=== PATIENT | female | born 1990 | race Caucasian/White ===

== ENCOUNTER 2016-08-01 09:07 | Emergency (ER) | payer BC, MEDICAID ==
[2016-08-01] MEDS ORDERED: NS 0.9% 1000 ML* 1,000 ML IV ONE (09:25)
--- NOTE | 2016-08-01 09:30 | ED ---
Abdominal Pain/Female - History of Current Complaint Chief Complaint: EDAbdPain Stated Complaint: LOWER ABD PAIN Hx Obtained From: Patient Hx Last Menstrual Period: Implanon ?: No Onset/Duration: Sudden Onset - awoke this am with lower abd pain. felt urge to have BM, did go to [facility] and had brown diarrhea, no blood. no vaginal d/c no urinary prob pt did feel nausous for few min, but no vomiting. has had [facility] co-workers out with "GI bug" Timing: Intermittent Episode Lasting - 20min Severity Initially: Severe Severity Currently: Moderate Pain Intensity: 7 Location: Other - lower R and mid abd Radiates: No Character: Cramping Aggravating Factor(s): Nothing Alleviating Factor(s): Nothing - BM helped a bit Associated Signs and Symptoms: Positive: Nausea, Diarrhea. Negative: Fever, Cough, Dizzy, Back Pain, Blood in Stool, Vomiting Allergies/Adverse Reactions: Allergies Allergy/AdvReac Type Severity Reaction Status Date / Time blue cheese Allergy Hives Uncoded 11/20/13 11:34 PMH/Surg Hx/FS Hx/Imm Hx Previously Healthy: Yes Endocrine/Hematology History: Denies: Hx Diabetes, Hx Thyroid Disease Cardiovascular History: Denies: Hx Hypertension Respiratory History: Denies: Hx Asthma, Hx Chronic Obstructive Pulmonary Disease (COPD) GI History: Denies: Hx Gall Bladder Disease, Hx Ulcer, Other GI Disorders History: Denies: Hx Kidney Infection Neurological History: Denies: Hx Headaches Psychiatric History: Denies: Hx Anxiety, Hx Depression Infectious Disease History: No Infectious Disease History: Denies: Hx Clostridium Difficile, Hx Hepatitis, Hx Human Immunodeficiency Virus (HIV), Hx of Known/Suspected MRSA, Hx Shingles, Hx Tuberculosis, Traveled Outside the [place] in Last 30 Days - Family History Known Family History: Positive: None, Other - mother: endometriosis Family History: no cardio, pulmonary, vascular issues in family lineage - Social History Occupation: Unemployed Lives: With Family Alcohol Use: None Substance Use Type: Reports: None Smoking Status (MU): Never Smoked Tobacco Have You Smoked in the Last Year: No Review of Systems Constitutional: Negative ENT: Negative Cardiovascular: Negative Respiratory: Negative Positive: Abdominal Pain, Diarrhea, Nausea Genitourinary: Negative Musculoskeletal: Negative Skin: Negative Negative: Rash Neurological: Negative Negative: Headache, Weakness Psychological: Normal All Other Systems Reviewed And Are Negative: Yes Physical Exam Triage Information Reviewed: Yes Vital Signs On Initial Exam: Initial Vitals Temp Pulse Resp BP Pulse Ox 98.8 F 65 16 105/77 98 08/01/16 09:13 08/01/16 09:13 08/01/16 09:13 08/01/16 09:13 08/01/16 09:13 Vital Signs Reviewed: Yes Appearance: Positive: Well-Appearing, No Pain Distress, Well-Nourished Skin: Positive: Warm, Skin Color Reflects Adequate Perfusion, Dry ENT: Positive: Normal ENT inspection, Pharynx normal Neck: Positive: Supple, Nontender, No Lymphadenopathy Respiratory/Lung Sounds: Positive: Clear to Auscultation Cardiovascular: Positive: Normal, RRR, Pulses are Symmetrical in both Upper and Lower Extremities Abdomen Description: Positive: No Organomegaly, Soft, Other: - pain with palp mid lower abd and RLQ. mild rebound tenderness, worse with palp. Negative: CVA Tenderness (R), CVA Tenderness (L), Distended, Guarding Bowel Sounds: Positive: Present Musculoskeletal: Positive: Normal, Strength/ROM Intact Neurological: Positive: Normal, Sensory/Motor Intact, Alert, Oriented to Person Place, Time Psychiatric: Positive: Normal Diagnostics - Vital Signs Vital Signs Temp Pulse Resp BP Pulse Ox 08/01/16 09:13 98.8 F 65 16 105/77 98 - Laboratory Result Diagrams: 08/01/16 09:38 08/01/16 09:38 Lab Statement: Any lab studies that have been ordered have been reviewed, and results considered in the medical decision making process. Re-Evaluation - Re-Evaluation First Eval Change: Improved - pain now only in lower mid abd. no rebound tenedrness. pt ambulattory to void w/o prob Abdominal Pain Fem Course/Dx - Diagnoses Differential Diagnosis: Positive: Appendicitis, Ovarian Cyst, Renal Colic, Other - gastroenteritis Provider Diagnoses: Abdominal pain Discharge - Discharge Plan Condition: Improved Disposition: HOME Patient Education Materials: Abdominal Pain (ED), Clear Liquid Diet (ED) Referrals: No Primary Care Phys,NOPCP [Primary Care Provider] - Eliu Boo MD [Medical Doctor] - 1 Day Additional Instructions: stay on clear liquid diet for 24hours then advance to bland foods stay well hydrated with fluids (Gatorade) Return to ER if you develop a fever, new symptoms or your pain increases at any time
[2016-08-01 09:43] LABS: Hematocrit 41 % (35-47); Hemoglobin 13.7 g/dl (12.0-16.0); Mean Corpuscular HGB Conc 34 g/dl (31-36); Mean Corpuscular Hemoglobin 29 pg (27-31); Mean Corpuscular Volume 87 fL (80-97); Mean Platelet Volume 9 um3 (7.4-10.4); Red Blood Count 4.68 10^6/ul (4.0-5.4); Red Cell Distribution Width 13 % (10.5-15); White Blood Count 10.4 10^3/ul (3.5-10.8)
[2016-08-01 09:58] LABS: BUN/Creatinine Ratio 16.4 (8-20); C Reactive Protein 1.12 mg/L (< 5.00); EGFR African American 137.9 (>60); EGFR Non-African American 107.2 (>60); Globulin 2.9 g/dL (2-4); Potassium 3.3 mmol/L (3.5-5.0); Total Bilirubin 0.5 mg/dL (0.2-1.0); Total Protein 6.9 g/dL (6.4-8.9)
[2016-08-01 10:31] LABS: Urine Bacteria Absent (Absent); Urine Bilirubin Negative (Negative); Urine Glucose Negative (Negative); Urine Nitrite Negative (Negative)
[2016-08-01 11:49] VITALS: BP 107/64
== END 2016-08-01 11:50 | disposition home or self-care (01) ==
LOC: ED 09:07
DX: R10.30 Lower abdominal pain, unspecified (principal); R11.0 Nausea; R19.7 Diarrhea, unspecified
CPT/HCPCS: 36415; 80053; 81003; 81015; 83605; 83690; 85025; 86140; 96360; 99283

== ENCOUNTER 2016-08-02 10:53 | Emergency (ER) | payer BC, MEDICAID ==
[2016-08-02 12:05] VITALS: BP 132/86
--- NOTE | 2016-08-02 14:56 | UC ---
Maik Perez Matthew, scribed for Aurea Anderson DO on 08/02/16 at 1332 . Abdominal Pain Female HPI - HPI Summary HPI Summary: A 26 y/o female presents to [facility] with constant lower abdominal pain that is worse in the middle of her lower abdomen. The pain is currently rated 4/10 and described as dull. Yesterday morning, the patient had sudden lower abdominal pain that was rated 9/10 in severity; however she did not awake with this pain. At that time, the pain was described as sharp, and prompted her to go to [facility]. She had one bout of loss stole, diaphoresis, and nausea. She denies blood in her stool at that time. The pain has decreased in intensity from a 7/10 to a 5-6 /10. Today, the patient continues to have the lower abdominal pain. She denies nausea, vomiting, diarrhea, decreased appetite, fever, chills, SOB, dizziness, diffuse body aches, headache, rashes, and urinary symptoms. The pain is worse with bumps in the road, jumping, BM, urination, movement, touch, coughing, and laying flat. normal bm today. The pain is partially alleviated in the position and sitting. - History of Current Complaint Chief Complaint: UCAbdominalPain Stated Complaint: ABDOMINAL PAIN Time Seen by Provider: 08/02/16 13:05 Hx Obtained From: Patient Hx Last Menstrual Period: nexplanon ?: No Onset/Duration: Sudden Onset, Lasting Days, Still Present Severity Initially: Moderate Severity Currently: Mild Pain Intensity: 4 Pain Scale Used: 0-10 Numeric Location: Diffuse - lower abdominal worse umblical Radiates: No Character: Dull Aggravating Factor(s): Movement, Other: - bumps in the road, jumping, BM, urination, movement, touch, coughing, and laying flat Alleviating Factor(s): Other: - position Associated Signs and Symptoms: Negative: Diaphoresis, Fever, Chest Pain, Blood in Stool, Urinary Symptoms, Decreased Appetite, Nausea, Vomiting, Diarrhea Allergies/Adverse Reactions: Allergies Allergy/AdvReac Type Severity Reaction Status Date / Time blue cheese Allergy Hives Uncoded 11/20/13 11:34 Home Medications: Home Medications Acetaminophen [Eq Acetaminophen] 1,000 mg PO 01/09/17 [History] PMH/Surg Hx/FS Hx/Imm Hx Previously Healthy: Yes Endocrine History Of: Denies: Diabetes, Thyroid Disease Cardiovascular History Of: Denies: Cardiac Disorders, Hypertension Respiratory History Of: Denies: COPD, Asthma GI/ History Of: Denies: Ulcer, Gall Bladder Disease Psychological History Of: Denies: Anxiety, Depression - Surgical History Surgical History: None - Family History Known Family History: Positive: None, Other - mother: endometriosis Family History: no cardio, pulmonary, vascular issues in family lineage - Social History Lives: With Family Alcohol Use: None Substance Use Type: None Smoking Status (MU): Never Smoked Tobacco Have You Smoked in the Last Year: No - Immunization History Most Recent Influenza Vaccination: 04/30/16 Most Recent Tetanus Shot: 03/27/14 Most Recent Pneumonia Vaccination: n/a Review of Systems Constitutional: Negative Skin: Negative Eyes: Negative ENT: Negative Respiratory: Negative Cardiovascular: Negative Gastrointestinal: Abdominal Pain - Diffuse lower abdominal pain worse umblical Genitourinary: Negative Motor: Negative Neurovascular: Negative Musculoskeletal: Negative Neurological: Negative Psychological: Negative All Other Systems Reviewed And Are Negative: Yes Physical Exam Triage Information Reviewed: Yes Appearance: Well-Appearing, No Pain Distress, Well-Nourished Vital Signs: Initial Vital Signs Temp 98.3 F 08/02/16 12:00 Pulse 60 08/02/16 12:00 Resp 18 08/02/16 12:00 BP 132/86 08/02/16 12:00 Pulse Ox 99 08/02/16 12:00 Vital Signs Reviewed: Yes Eyes: Positive: Conjunctiva Clear. Negative: Discharge ENT: Positive: Hearing grossly normal. Negative: Muffled/hoarse voice Neck: Positive: Supple, Nontender Respiratory: Positive: Lungs clear, Normal breath sounds, No respiratory distress, No accessory muscle use Cardiovascular: Positive: RRR, No Murmur Abdomen Description: Positive: Soft, McBurney's Point Tenderness, Other: - RLQ tenderness; mild rebound; ; pain with landing from a jump; negative psoas sign; negative obturator sign. Negative: CVA Tenderness (R), CVA Tenderness (L), Distended, Guarding Bowel Sounds: Positive: Present Musculoskeletal Exam: Normal Neurological: Positive: Alert, Muscle Tone Normal Psychological Exam: Normal Psychological: Positive: Age Appropriate Behavior Skin Exam: Normal Skin: Positive: Other - warm, dry, normal color Abd Pain Female Course/Dx - Differential Dx/Diagnosis Differential Diagnosis: Appendicitis, Ectopic , Irritable Bowel Syndrome, Ovarian Cyst, , Urinary Tract Infection Provider Diagnoses: abd pain unknown [place] Discharge - Discharge Plan Condition: Stable Disposition: TRANS HIGHER LVL OF CARE FAC Discharge Disposition Comment: The patient requries further management at the ED. Referrals: No Primary Care Phys,NOPCP [Primary Care Provider] - The documentation as recorded by the Maik schwab Matthew accurately reflects the service I personally performed and the decisions made by , Aurea Anderson DO.
== END 2016-08-02 14:13 | disposition short-term general hospital (02) ==
LOC: UCEAST 10:53
DX: R10.33 Periumbilical pain (principal); Z32.02 Encounter for pregnancy test, result negative
CPT/HCPCS: 81002; 81025; 99212; G0463

== ENCOUNTER 2016-08-02 14:26 | Emergency (ER) | payer BC, MEDICAID ==
--- NOTE | 2016-08-02 15:18 | ED ---
Abdominal Pain/Female - HPI Summary HPI Summary: 26 female presents today complaining of abdominal pain that began yesterday . She was seen here at the ED yesterday after this episode and discharged later that night with the diagnosis of a "GI bug". She describes the pain yesterday as sharp shooting intense pain that made her curl up into the position. She was very nauseous and sweaty during this episode. She also experienced one episode of diarrhea. Denies blood in her stool. She has never experienced this pain before. The pain dissipated throughout her stay in the ED and has since been a dull achey pain in her RLQ/umbilical area of her abdomen. This morning upon waking up she went to urgent care to be evaluated since the pain was still there. She was then sent back to the ED. She now states the pain is constant but much less in severity when compared to yesterday. The pain gets worse when moving, coughing, laughing, jumping or hitting bumps while in the car. Resting helps with the pain. She tried taking a Tylenol before bed last night but went to sleep after and wasn't able to notice any relief. She denies any constipation, diarrhea, nausea, vomiting, fever/chills, difficulty breathing , difficulty urinating, burning upon urination, chest pain, hematuria and radiation of pain. - History of Current Complaint Hx Obtained From: Patient Hx Last Menstrual Period: nexplanon, doesn't get her periods ?: No Onset/Duration: Sudden Onset - sudden onset yesterday morning 08/01/16. Pain is much less than yesterday but still constantly there., Still Present Timing: Constant Severity Initially: Severe Severity Currently: Mild Pain Intensity: 3 Pain Scale Used: 0-10 Numeric Location: Discrete At: RLQ - radiation to LLQ, Umbilical Radiates to: LLQ Character: Dull Aggravating Factor(s): Movement - jumping, coughing, laughing, car ride bumps Alleviating Factor(s): Position Associated Signs and Symptoms: Positive: Diaphoresis - yesterday 08/01/16, Nausea - yesterday, not today, Diarrhea - one episode yesterday 08/01/16. Negative: Fever, Cough, Chest Pain, Constipation, Blood in Stool, Urinary Symptoms, Decreased Appetite, Vaginal Discharge, Vomiting - Risk Factors Ectopic Risk Factor: Negative Ovarian Torsion Risk Factor: Negative <Erica Obrien - Last Filed: 08/02/16 19:26> <Jose Tate - Last Filed: 08/02/16 20:45> - History of Current Complaint Chief Complaint: EDAbdPain Stated Complaint: LOWER ABD PAIN Allergies/Adverse Reactions: Allergies Allergy/AdvReac Type Severity Reaction Status Date / Time blue cheese Allergy Hives Uncoded 11/20/13 11:34 PMH/Surg Hx/FS Hx/Imm Hx Previously Healthy: Yes Endocrine/Hematology History: Denies: Hx Diabetes, Hx Thyroid Disease Cardiovascular History: Denies: Hx Hypertension Respiratory History: Denies: Hx Asthma, Hx Chronic Obstructive Pulmonary Disease (COPD) GI History: Denies: Hx Gall Bladder Disease, Hx Ulcer, Other GI Disorders History: Denies: Hx Kidney Infection Neurological History: Denies: Hx Headaches Psychiatric History: Denies: Hx Anxiety, Hx Depression Infectious Disease History: No Infectious Disease History: Denies: Hx Clostridium Difficile, Hx Hepatitis, Hx Human Immunodeficiency Virus (HIV), Hx of Known/Suspected MRSA, Hx Shingles, Hx Tuberculosis, Traveled Outside the [place] in Last 30 Days - Family History Known Family History: Positive: Other - mother: endometriosis Family History: no cardio, pulmonary, vascular issues in family lineage. Mother does have endometriosis. - Social History Alcohol Use: None Substance Use Type: Reports: None Smoking Status (MU): Never Smoked Tobacco Have You Smoked in the Last Year: No <Erica Obrien - Last Filed: 08/02/16 19:26> Review of Systems Constitutional: Negative Eyes: Negative ENT: Negative Cardiovascular: Negative Respiratory: Negative Positive: Abdominal Pain - RLQ, Umbilical area, radiating to LLQ Genitourinary: Negative Musculoskeletal: Negative Skin: Negative Neurological: Negative Psychological: Normal All Other Systems Reviewed And Are Negative: Yes <Erica Obrien - Last Filed: 08/02/16 19:26> Physical Exam Triage Information Reviewed: Yes Vital Signs On Initial Exam: Initial Vitals Temp Pulse Resp BP Pulse Ox 98.8 F 67 16 121/72 100 08/02/16 14:42 08/02/16 14:42 08/02/16 14:42 08/02/16 14:42 08/02/16 14:42 Vital Signs Reviewed: Yes Appearance: Positive: Well-Appearing, No Pain Distress, Well-Nourished Skin: Positive: Warm, Skin Color Reflects Adequate Perfusion Eyes: Positive: Normal ENT: Positive: Normal ENT inspection, Hearing grossly normal, Pharynx normal, Nasal congestion, TMs normal Neck: Positive: Supple, Nontender, No Lymphadenopathy Respiratory/Lung Sounds: Positive: Clear to Auscultation, Breath Sounds Present Cardiovascular: Positive: Normal, RRR, Pulses are Symmetrical in both Upper and Lower Extremities Abdomen Description: Positive: No Organomegaly, Soft, Guarding, McBurney's Point Tenderness - tenderness to RLQ, umbilical area and right pelvic area. Some radiation to LLQ.. Negative: CVA Tenderness (R), CVA Tenderness (L), Distended, Peritoneal Signs, Pulsatile Mass, Splenomegaly Bowel Sounds: Positive: Present Pelvic Exam: Positive: external exam normal Musculoskeletal: Positive: Normal Neurological: Positive: Normal, Sensory/Motor Intact, Alert, Oriented to Person Place, Time Psychiatric: Positive: Normal <Erica Obrien - Last Filed: 08/02/16 19:26> Vital Signs On Initial Exam: Initial Vitals Temp Pulse Resp BP Pulse Ox 98.8 F 67 16 121/72 100 08/02/16 14:42 08/02/16 14:42 08/02/16 14:42 08/02/16 14:42 08/02/16 14:42 <Jose Tate - Last Filed: 08/02/16 20:45> Diagnostics - Vital Signs Vital Signs Temp Pulse Resp BP Pulse Ox 08/02/16 14:42 98.8 F 67 16 121/72 100 - Laboratory Result Diagrams: 08/02/16 16:05 08/02/16 16:05 Lab Statement: Any lab studies that have been ordered have been reviewed, and results considered in the medical decision making process. - CT CT abdomen, pelvis CT Interpretation: No Acute Changes - NORMAL APPENDIX. NO EVIDENCE OF BOWEL OBSTRUCTION. MODERATE AMOUNT OF FREE FLUID IS NOTED IN THE CUL-DE-SAC. CT Interpretation Completed By: Radiologist - Ultrasound No standard instances Ultrasound Interpretation: Positive (See Comments) - Likely involuting cyst in the right ovary measuring 2.9 cm in greatest dimension. Free fluid in the cul- de-sac. No evidence of torsion with Doppler flow in both ovaries. Ultrasound Interpretation Completed By: Radiologist <Erica Obrien - Last Filed: 08/02/16 19:26> - Vital Signs Vital Signs Temp Pulse Resp BP Pulse Ox 08/02/16 19:08 86 16 08/02/16 18:11 86 99 08/02/16 17:00 82 96 08/02/16 16:30 79 93 08/02/16 16:24 78 99 08/02/16 16:23 112/68 08/02/16 14:42 98.8 F 67 16 121/72 100 - Laboratory Lab Results: Lab Results 08/02/16 08/02/16 08/02/16 Range/Units 16:05 16:05 16:05 WBC 12.6 H (3.5-10.8) 10^3/ul RBC 4.22 (4.0-5.4) 10^6/ul Hgb 12.2 (12.0-16.0) g/dl Hct 37 (35-47) % MCV 88 (80-97) fL MCH 29 (27-31) pg MCHC 33 (31-36) g/dl RDW 13 (10.5-15) % Plt Count 182 (150-450) 10^3/ul MPV 10 (7.4-10.4) um3 Neut % (Auto) 82.0 (38-83) % Lymph % (Auto) 12.8 L (25-47) % [place] % (Auto) 4.3 (1-9) % Eos % (Auto) 0.6 (0-6) % Baso % (Auto) 0.3 (0-2) % Absolute Neuts (auto) 10.3 H (1.5-7.7) 10^3/ul Absolute Lymphs (auto) 1.6 (1.0-4.8) 10^3/ul Absolute Monos (auto) 0.5 (0-0.8) 10^3/ul Absolute Eos (auto) 0.1 (0-0.6) 10^3/ul Absolute Basos (auto) 0 (0-0.2) 10^3/ul Absolute Nucleated RBC 0 10^3/ul Nucleated RBC % 0 Sodium 137 (133-145) mmol/L Potassium 3.4 L (3.5-5.0) mmol/L Chloride 105 (101-111) mmol/L Carbon Dioxide 24 (22-32) mmol/L Anion Gap 8 (2-11) mmol/L BUN 6 (6-24) mg/dL Creatinine 0.64 (0.51-0.95) mg/dL Est GFR ( Amer) 145.4 (>60) Est GFR (Non-Af Amer) 113.1 (>60) BUN/Creatinine Ratio 9.4 (8-20) Glucose 88 (70-100) mg/dL Lactic Acid (0.5-2.0) mmol/L Calcium 9.2 (8.6-10.3) mg/dL Total Bilirubin 0.70 (0.2-1.0) mg/dL AST 15 (13-39) U/L ALT 10 (7-52) U/L Alkaline Phosphatase 64 (34-104) U/L C-Reactive Protein 9.41 H (< 5.00) mg/L Total Protein 6.9 (6.4-8.9) g/dL Albumin 4.2 (3.2-5.2) g/dL Globulin 2.7 (2-4) g/dL Albumin/Globulin Ratio 1.6 (1-3) Amylase 56 (29-103) U/L Lipase 14 (11.0-82.0) U/L Beta HCG, Quant < 0.60 mIU/mL Urine Color Yellow Urine Appearance Cloudy Urine pH 5.0 (5-9) Ur Specific [place] 1.014 (1.010-1.030) Urine Protein Negative (Negative) Urine Ketones Negative (Negative) Urine Blood Negative (Negative) Urine Nitrate Negative (Negative) Urine Bilirubin Negative (Negative) Urine Urobilinogen Negative (Negative) Ur Leukocyte Esterase 1+ H (Negative) Urine WBC (Auto) 1+(6-10/hpf) H (Absent) Urine RBC (Auto) Absent (Absent) Ur Squamous Epith Cells Present H (Absent) Urine Bacteria Absent (Absent) Urine Glucose Negative (Negative) 08/02/16 Range/Units 16:05 WBC (3.5-10.8) 10^3/ul RBC (4.0-5.4) 10^6/ul Hgb (12.0-16.0) g/dl Hct (35-47) % MCV (80-97) fL MCH (27-31) pg MCHC (31-36) g/dl RDW (10.5-15) % Plt Count (150-450) 10^3/ul MPV (7.4-10.4) um3 Neut % (Auto) (38-83) % Lymph % (Auto) (25-47) % [place] % (Auto) (1-9) % Eos % (Auto) (0-6) % Baso % (Auto) (0-2) % Absolute Neuts (auto) (1.5-7.7) 10^3/ul Absolute Lymphs (auto) (1.0-4.8) 10^3/ul Absolute Monos (auto) (0-0.8) 10^3/ul Absolute Eos (auto) (0-0.6) 10^3/ul Absolute Basos (auto) (0-0.2) 10^3/ul Absolute Nucleated RBC 10^3/ul Nucleated RBC % Sodium (133-145) mmol/L Potassium (3.5-5.0) mmol/L Chloride (101-111) mmol/L Carbon Dioxide (22-32) mmol/L Anion Gap (2-11) mmol/L BUN (6-24) mg/dL Creatinine (0.51-0.95) mg/dL Est GFR ( Amer) (>60) Est GFR (Non-Af Amer) (>60) BUN/Creatinine Ratio (8-20) Glucose (70-100) mg/dL Lactic Acid 0.8 (0.5-2.0) mmol/L Calcium (8.6-10.3) mg/dL Total Bilirubin (0.2-1.0) mg/dL AST (13-39) U/L ALT (7-52) U/L Alkaline Phosphatase (34-104) U/L C-Reactive Protein (< 5.00) mg/L Total Protein (6.4-8.9) g/dL Albumin (3.2-5.2) g/dL Globulin (2-4) g/dL Albumin/Globulin Ratio (1-3) Amylase (29-103) U/L Lipase (11.0-82.0) U/L Beta HCG, Quant mIU/mL Urine Color Urine Appearance Urine pH (5-9) Ur Specific [place] (1.010-1.030) Urine Protein (Negative) Urine Ketones (Negative) Urine Blood (Negative) Urine Nitrate (Negative) Urine Bilirubin (Negative) Urine Urobilinogen (Negative) Ur Leukocyte Esterase (Negative) Urine WBC (Auto) (Absent) Urine RBC (Auto) (Absent) Ur Squamous Epith Cells (Absent) Urine Bacteria (Absent) Urine Glucose (Negative) Result Diagrams: 08/02/16 16:05 08/02/16 16:05 Lab Statement: Any lab studies that have been ordered have been reviewed, and results considered in the medical decision making process. <Jose Tate - Last Filed: 08/02/16 20:45> Abdominal Pain Fem Course/Dx - Course Course Of Treatment: Patient will be worked up to rule out appendicitis, ovarian cysts, ovarian torsion, and ectopic . She did not want pain management at this time. She was given fluids and labs will be drawn CBC, CMP, Lipase/Amylase, UA, and HCG preg. Transvaginal ultrasound and CT with contrast will be obtained. - Diagnoses Differential Diagnosis: Positive: Appendicitis, Constipation, Ectopic , Ovarian Cyst, , Urinary Tract Infection - Provider Notifications Discussed Care Of Patient With: Discussed care and evaluated by Dr Tate <Erica Obrien - Last Filed: 08/02/16 19:26> <Jose Tate - Last Filed: 08/02/16 20:45> - Diagnoses Provider Diagnoses: Ovarian cyst, Ruptured ovarian cyst Discharge <Erica Obrien - Last Filed: 08/02/16 19:26> <Jose Tate - Last Filed: 08/02/16 20:45> - Discharge Plan Condition: Good Disposition: HOME Patient Education Materials: Ovarian Cyst (ED) Referrals: No Primary Care Phys,NOPCP [Primary Care Provider] - Annelise Robles NP [Nurse Practitioner] - Additional Instructions: Take OTC medication such as Tylenol or Aleve to help with pain and inflammation as needed. Heating pads will help with the pain and discomfort. If symptoms worsen or do not improve please seek medical attention promptly. Please follow up with your OBGYN or PCP within 5-7 days.
[2016-08-02] MEDS ORDERED: NS 0.9% 1000 ML* 2,000 ML IV ONE (15:48)
[2016-08-02 16:20] LABS: Hematocrit 37 % (35-47); Hemoglobin 12.2 g/dl (12.0-16.0); Mean Corpuscular HGB Conc 33 g/dl (31-36); Mean Corpuscular Hemoglobin 29 pg (27-31); Mean Corpuscular Volume 88 fL (80-97); Mean Platelet Volume 10 um3 (7.4-10.4); Red Blood Count 4.22 10^6/ul (4.0-5.4); Red Cell Distribution Width 13 % (10.5-15); White Blood Count 12.6 10^3/ul (3.5-10.8)
[2016-08-02 16:33] LABS: Urine Bacteria Absent (Absent); Urine Bilirubin Negative (Negative); Urine Glucose Negative (Negative); Urine Nitrite Negative (Negative)
[2016-08-02 16:37] LABS: ALT 10 U/L (7-52); AST 15 U/L (13-39); Albumin 4.2 g/dL (3.2-5.2); Alkaline Phosphatase 64 U/L (34-104); Amylase 56 U/L (29-103); Anion Gap 8 mmol/L (2-11); BUN/Creatinine Ratio 9.4 (8-20); Blood Urea Nitrogen 6 mg/dL (6-24); C Reactive Protein 9.41 mg/L (< 5.00); CO2 Carbon Dioxide 24 mmol/L (22-32); Calcium 9.2 mg/dL (8.6-10.3); Chloride 105 mmol/L (101-111); EGFR African American 145.4 (>60); EGFR Non-African American 113.1 (>60); Globulin 2.7 g/dL (2-4); Glucose 88 mg/dL (70-100); Lipase 14 U/L (11.0-82.0); Potassium 3.4 mmol/L (3.5-5.0); Sodium 137 mmol/L (133-145); Total Protein 6.9 g/dL (6.4-8.9)
[2016-08-02] MEDS ORDERED: Iohexol 300* (CONTRAST) 10 ML SDV IV ONE (17:17)
--- NOTE | 2016-08-02 17:18 | RAD ---
Indication: Ovarian cyst versus torsion with extreme pelvic pain on the right. Real-time sonography of the pelvis was performed with endovaginal technique. The uterus measures 7.0 x 3.1 x 4.0 cm. Endometrial echo measures up to 5 mm. The right ovary measures 43 x 30 x 31 mm with a complex cystic structure in the right ovary measuring 29 x 16 x 18 mm. Free fluid is noted adjacent to the right adnexa. Left ovary measures 2.6 x 1.9 x 2.3 cm. Small amount of free fluid is noted in the cul-de-sac. Doppler interrogation demonstrates flow in both ovaries. IMPRESSION: Likely involuting cyst in the right ovary measuring 2.9 cm in greatest dimension. Free fluid in the cul-de-sac. No evidence of torsion with Doppler flow in both ovaries.
--- NOTE | 2016-08-02 18:30 | RAD ---
Indication: Pelvic pain. CT of the abdomen and pelvis was performed after oral and IV contrast administration. Administered 78.8 ml of OMNIPAQUE 300 MGI was administered intravenously. Coronal and sagittal reconstructed images were obtained. Lung bases demonstrate no pleural fluid, nodules or masses. Heart is of normal size without evidence of pericardial effusion. Liver is normal in size. No focal lesions or intrahepatic ductal dilatation is noted. Pancreas demonstrates no mass or ductal dilatation. The common duct is not dilated. Spleen is normal in size. Gallbladder demonstrates no calcified gallstones, pericholecystic fluid or wall thickening. No adrenal lesions are noted. The kidneys demonstrate symmetric nephrograms without focal lesions. No retroperitoneal adenopathy is noted. CT of the pelvis demonstrates no retroperitoneal or pelvic lymphadenopathy. The appendix is visualized and is normal. The uterus and ovaries are grossly unremarkable. There is a moderate amount of free fluid noted in the cul-de-sac of uncertain etiology. No evidence of bowel obstruction is noted. The visualized bony structures are otherwise unremarkable. IMPRESSION: NORMAL APPENDIX. NO EVIDENCE OF BOWEL OBSTRUCTION. MODERATE AMOUNT OF FREE FLUID IS NOTED IN THE CUL-DE-SAC.
[2016-08-02 19:08] VITALS: BP 112/68
--- NOTE | 2016-08-02 20:45 | ED ---
I, Oh,David, scribed for Jose Tate MD on 08/02/16 at 1550 . Progress - Progress Note Progress Note: This 26 y/o female presents to ED for acute abd pain since yesterday AM. Abd pain is most notable on RLQ. Pt was seen at [facility] for similar complaint yesterday. Pt decided to visit ED when she became concerned with persistent abd after yesterday's discharge. Pt denies any fever, dysuria, n/v, no vaginal discharge, or cough. Pt reports single bout of diarrhea at the time of onset. She reports recent sore throat and rhinorrhea. Rest make the pain better. Pt took pain med last night but unsure if it helped. Movement, ambulation, and "bumps during car ride" make it worse. Pt denies any hx of ovarian cyst. FHx is positive for endometriosis to mother. She still has gallbladder and appendix. . - Results/Orders Results/Orders: US transvaginal -- Likely involuting cyst in the right ovary measuring 2.9 cm in greatest dimension. Free fluid in the cul-de-sac. No evidence of torsion with Doppler flow in both ovaries. CT AB/P -- NORMAL APPENDIX. NO EVIDENCE OF BOWEL OBSTRUCTION. MODERATE AMOUNT OF FREE FLUID IS NOTED IN THE CUL-DE-SAC. Physical Exam - Summary Physical Exam Summary: The patient is well-nourished in moderate pain distress. The skin is warm and dry and skin color reflects adequate perfusion. HEENT: The head is normocephalic and atraumatic. The pupils are equal and reactive. The conjunctivae are clear and without drainage. Nares are patent and without drainage. Mouth reveals DRY mucous membranes and the throat is without erythema and exudate. The external ears are intact. The ear canals are patent and without drainage. The tympanic membranes are intact. Neck is supple with full range of motion and non-tender. There are no carotid bruits. There is no neck vein distension. Respiratory: Chest is non-tender. Breath sounds present. Abdomen: The abdomen is soft and tender over McBurney's point. Positive rebound tenderness. Right ovary tenderness. No CVA tenderness. Musculoskeletal: There is no back pain noted. Extremities are non-tender with full range of motion. There is good capillary refill. There is no peripheral edema or calf tenderness elicited. Neurological: Patient is alert and oriented to person, place and time. The patient has symmetrical motor strength in all four extremities. Cranial nerves are grossly intact. Deep tendon reflexes are symmetrical and equal in all four extremities. Psychiatric: The patient has an appropriate affect and does not exhibit any anxiety or depression. Triage Information Reviewed: Yes Vital Signs On Initial Exam: Initial Vitals Temp Pulse Resp BP Pulse Ox 98.8 F 67 16 121/72 100 08/02/16 14:42 08/02/16 14:42 08/02/16 14:42 08/02/16 14:42 08/02/16 14:42 Vital Signs Reviewed: Yes Course/Dx - Diagnoses Provider Diagnoses: Ovarian cyst, Ruptured ovarian cyst The documentation as recorded by the Gideon schwab Soohyun accurately reflects the service I personally performed and the decisions made by , Jose Tate MD.
== END 2016-08-02 19:08 | disposition home or self-care (01) ==
LOC: ED 14:26
DX: N83.209 Unspecified ovarian cyst, unspecified side (principal); R10.84 Generalized abdominal pain
CPT/HCPCS: 36415; 74177; 76830; 80053; 81002; 81003; 81015; 81025; 82150; 83605; 83690; 84702; 85025; 86140; 87086; 96360; 99212; 99283; G0463; Q9967

== ENCOUNTER 2016-09-01 08:03 | Emergency (ER) | payer BC, MEDICAID ==
[2016-09-01 08:31] VITALS: BP 116/82
--- NOTE | 2016-09-01 08:48 | UC ---
Throat Pain/Nasal Richard HPI - HPI Summary HPI Summary: PT HAS HAD MILD COUGH AND ST FOR A FEW DAYS. SON DIAGNOSED WITH FLU YESTERDAY. PT GOING ON A TRIP IN 3 DAYS AND WAS INTERESTED IN PROPHYLACTIC TAMIFLU. DENIES FEVER, BODY ACHES. - History of Current Complaint Chief Complaint: UCGeneralIllness Stated Complaint: SORE THROAT Time Seen by Provider: 09/01/16 08:35 Hx Obtained From: Patient Hx Last Menstrual Period: irreg. Onset/Duration: Gradual Onset, Lasting Days, Still Present Severity: Mild Pain Intensity: 0 Pain Scale Used: 0-10 Numeric Cough: Nonproductive Associated Signs & Symptoms: Positive: Negative - Allergies/Home Medications Allergies/Adverse Reactions: Allergies Allergy/AdvReac Type Severity Reaction Status Date / Time blue cheese Allergy Hives Uncoded 11/20/13 11:34 PMH/Surg Hx/FS Hx/Imm Hx Previously Healthy: Yes Endocrine History Of: Denies: Diabetes, Thyroid Disease Cardiovascular History Of: Denies: Cardiac Disorders, Hypertension Respiratory History Of: Denies: COPD, Asthma GI/ History Of: Denies: Ulcer, Gall Bladder Disease Psychological History Of: Denies: Anxiety, Depression - Surgical History Surgical History: None Surgery Procedure, Year, and Place: ruptured ovarian cycst 07/2016 - Family History Known Family History: Positive: Hypertension, Other - mother: endometriosis Family History: no cardio, pulmonary, vascular issues in family lineage. Mother does have endometriosis. - Social History Alcohol Use: None Substance Use Type: None Smoking Status (MU): Never Smoked Tobacco Have You Smoked in the Last Year: No - Immunization History Most Recent Influenza Vaccination: 04/30/16 Most Recent Tetanus Shot: 03/27/14 Most Recent Pneumonia Vaccination: n/a Review of Systems Constitutional: Negative ENT: Sore Throat Respiratory: Cough Cardiovascular: Negative Gastrointestinal: Negative All Other Systems Reviewed And Are Negative: Yes Physical Exam Triage Information Reviewed: Yes Appearance: Well-Appearing, No Pain Distress, Well-Nourished Vital Signs: Initial Vital Signs Temp 98.9 F 09/01/16 08:25 Pulse 67 09/01/16 08:25 Resp 16 09/01/16 08:25 BP 116/82 09/01/16 08:25 Pulse Ox 99 09/01/16 08:25 Vital Signs Reviewed: Yes Eyes: Positive: Conjunctiva Clear ENT: Positive: Hearing grossly normal, Pharynx normal, TMs normal Neck: Positive: Supple, Nontender, No Lymphadenopathy Respiratory Exam: Normal Cardiovascular Exam: Normal Abdomen Description: Positive: Soft Musculoskeletal: Positive: No Edema Neurological: Positive: Alert Psychological: Positive: Age Appropriate Behavior Skin: Negative: rashes Throat Pain/Nasal Course/Dx - Differential Dx/Diagnosis Provider Diagnoses: 1. ACUTE URI. 2. FLU PROPHYLAXIS Discharge - Discharge Plan Condition: Stable Disposition: HOME Prescriptions: Oseltamivir CAP* [Tamiflu CAP*] 75 mg PO DAILY #10 cap Patient Education Materials: Upper Respiratory Infection (ED) Referrals: No Primary Care Phys,NOPCP [Primary Care Provider] - Additional Instructions: INFLUENZA PROPHYLAXIS WITH TAMIFLU 75MG DAILY X 10 DAYS. CALL THE NUMBER BELOW FOR ASSISTANCE IN ESTABLISHING WITH A PCP An additional resource available to assist in finding the appropriate physician for your health care needs is the [facility] ([facility]). You may contact them by calling [phone].
== END 2016-09-01 09:02 | disposition home or self-care (01) ==
LOC: UCEAST 08:03
DX: J06.9 Acute upper respiratory infection, unspecified (principal)
CPT/HCPCS: 99212; G0463

== ENCOUNTER 2017-10-04 15:08 | Inpatient (IN) | payer OTHER ==
--- NOTE | 2017-10-04 16:09 | HP ---
General Information - General Information Maternal Age: 27 Grav: 3 Para: 1 SAB: 0 IEA: 1 Estimated Due Date: 10/05/17 Determined By: Early Ultrasound Gestational Age in Weeks and Days: 39 Weeks and 6 Days Maternal Blood Type and Rh: O Positive - Results this Serology/RPR Result: Non-Reactive Rubella Result: Immune HBsAg Result: Negative HIV Result: Negative GBS Culture Result: Negative Past Medical History Delivery History: Hx Uncomplicated Vaginal Delivery Pertinent Past Medical History: Non-Contributory Pertinent Past Surgical History: None Pertinent Family History: See Records Family History Comment: VT, hypercholestermia, endometriosis - Antepartal Records Antepartal Records: Reviewed, Uncomplicated Review of Systems Constitutional: Uncomfortable CV Complaint: No Respiratory: Shortness of Breath: No Gastrointestinal: No Nausea/Vomiting, Normal Bowel Movement Genitourinary: No Dysuria, No Bleeding, No Leaking Fluid Musculoskeletal: Contractions Neurological: No Headache Movement: Normal Exam Allergies/Adverse Reactions: Allergies blue cheese Allergy (Uncoded 11/20/13 11:34) Hives states she has taken amoxicillin without any issues at all BP 127/82 RR 18 T 99.2 P 84 02 98 - Measurements Height: 5 ft 2 in Weight: 144 lb Weight in lbs: 144 Body Mass Index (BMI): 26.3 Pre- Weight: 120 lb Weight Gained This : 24 lbs and 0 ozs - Exam Abdomen: No Upper Quadrant Pain Breast: Breast Exam Deferred CVA: No CVA Tenderness Extremities: No Edema Heart: Normal Rhythm/Heart Sounds HEENT: No Significant Findings Lungs: Clear Bilaterally Rectal: Rectal Exam Deferred Reflexes: DTR 2+, - - no clonus Thyroid: No Thyromegaly - Cervical Exam 4cm/90%/0 vertex EFM Findings - External Monitor Findings Baseline Heart Rate: 140 External Monitor Findings: Accelerations Present, No Pattern of Variable or Late Decelerations, Variability Moderate Contractions: Irregular, Moderate, 45-90 Seconds Contraction Frequency: Q 4-7 Assessment/Plan - Reason for Visit Reason for Visit: IUP @ 39+6 weeks gestation in early labor. IBOW, no evidence of metabolic acidemia. - Plan Plan: Early Labor - Admit to L&D, pt would like AROM for augmentation, may desire epidural. Anticipate SVB
[2017-10-04] MEDS ORDERED: Buffered Lidocaine 0.9% SYRIN* 5 ML/SYR SYRINGE ONE (16:58)
[2017-10-04] MEDS ORDERED: Dibucaine 1% 28.35 GM TUBE PR PRN (19:29)
[2017-10-04] MEDS ORDERED: Acetaminophen TAB* 325 MG PO PRN (19:29)
[2017-10-04] MEDS ORDERED: Ibuprofen TAB* 600 MG PO PRN (19:29)
[2017-10-04] MEDS ORDERED: Glycerin ADULT SUPP PR PRN (19:29)
[2017-10-04] MEDS ORDERED: Witch Hazel PAD* JAR TOPICAL PRN (19:29)
[2017-10-04] MEDS ORDERED: Simethicone TAB* 80 MG TAB.CHEW PO SCH (21:00)
[2017-10-04] MEDS: Docusate CAP* 100 MG PO SCH (21:39)
[2017-10-05 07:02] LABS: ABS Basophils 0.1 10^3/ul (0-0.2); ABS Eosinophils 0.1 10^3/ul (0-0.6); ABS Lymphocytes 2.2 10^3/ul (1.0-4.8); ABS Monocytes 0.6 10^3/ul (0-0.8); ABS Nucleated RBC 0 10^3/ul; Eosinophil % 0.6 % (0-6); Hematocrit 39 % (35-47); Hemoglobin 13.4 g/dl (12.0-16.0); Lymphocyte % 18.6 % (25-47); Mean Corpuscular HGB Conc 34 g/dl (31-36); Mean Corpuscular Hemoglobin 31 pg (27-31); Mean Corpuscular Volume 92 fL (80-97); Mean Platelet Volume 11 um3 (7.4-10.4); Nucleated Red Blood Cells % 0; Platelet Count 149 10^3/ul (150-450); Red Blood Count 4.28 10^6/ul (4.0-5.4); Red Cell Distribution Width 14 % (10.5-15)
[2017-10-05] MEDS ORDERED: Ferrous Gluconate TAB* 324 MG TAB PO SCH (09:00)
[2017-10-05] MEDS: Docusate CAP* 100 MG PO SCH (19:59)
[2017-10-06 12:19] VITALS: BP 116/64
== END 2017-10-06 12:32 | disposition home or self-care (01) | DRG 560 ==
LOC: MCHOBOUT 15:08 → MCHOB 15:52
PROVIDERS: ADMIT Midwife; ATTEND Midwife
PROC: 10E0XZZ Delivery of Products of Conception, External Approach (ICD-10-PCS; principal; 2017-10-04)
PROC: 4A1HXCZ Monitoring of Products of Conception, Cardiac Rate, External Approach (ICD-10-PCS; 2017-10-04)
PROC: 10907ZC Drainage of Amniotic Fluid, Therapeutic from Products of Conception, Via Natural or Artificial Opening (ICD-10-PCS; 2017-10-04)
PROC: 10J07ZZ Inspection of Products of Conception, Via Natural or Artificial Opening (ICD-10-PCS; 2017-10-04)
DX: O62.3 Precipitate labor (principal); O69.2XX0 Labor and delivery complicated by other cord entanglement, with compression, not applicable or unspecified; Z3A.39 39 weeks gestation of pregnancy; Z37.0 Single live birth; Z91.018 Allergy to other foods
CPT/HCPCS: 36415; 85025; A9270-GY

== ENCOUNTER 2018-09-03 08:54 | Emergency (ER) | payer OTHER ==
[2018-09-03 09:07] VITALS: BP 115/77
--- NOTE | 2018-09-03 09:17 | UC ---
Eye Complaint HPI - HPI Summary HPI Summary: Patient is a 28 year old female , who present today to the urgent care with left eye redness since last night . There is yellowish discharge noted. Her daughter with bilateral eye discharge as well. Denies any contact lens use. 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 Denies any blurry vision, increased lacrimation. Denies any grittiness. - History of Current Complaint Chief Complaint: UCEye Stated Complaint: EYE COMPLAINT Time Seen by Provider: 09/03/18 08:58 Hx Obtained From: Patient Hx Last Menstrual Period: 11/22/2016 ?: No - on norethindrone Pain Intensity: 2 - Allergies/Home Medications Allergies/Adverse Reactions: Allergies Allergy/AdvReac Type Severity Reaction Status Date / Time blue cheese Allergy Hives Uncoded 09/03/18 09:07 Home Medications: Home Medications Norethindrone [Monse] 0.35 mg PO DAILY 09/03/18 [History Confirmed 09/03/18] PMH/Surg Hx/FS Hx/Imm Hx - Additional Past Medical History Additional PMH: no significant past medical history . Previously Healthy: Yes - Surgical History Surgical History: None Surgery Procedure, Year, and Place: ruptured ovarian cycst 07/2016 - Family History Known Family History: Positive: None, Hypertension, Other - mother: endometriosis Family History: no cardio, pulmonary, vascular issues in family lineage. Mother does have endometriosis. - Social History Alcohol Use: None Substance Use Type: None Smoking Status (MU): Never Smoked Tobacco Have You Smoked in the Last Year: No - Immunization History Most Recent Influenza Vaccination: 04/30/17 Most Recent Tetanus Shot: 03/27/14 Most Recent Pneumonia Vaccination: n/a Review of Systems All Other Systems Reviewed And Are Negative: Yes Constitutional: Positive: Negative Skin: Positive: Negative Eyes: Positive: Drainage - yellowish., Eye Redness ENT: Positive: Negative Respiratory: Positive: Negative Cardiovascular: Positive: Negative Gastrointestinal: Positive: Negative Genitourinary: Positive: Negative Motor: Positive: Negative Neurovascular: Positive: Negative Musculoskeletal: Positive: Negative Neurological: Positive: Negative Psychological: Positive: Negative Is Patient Immunocompromised?: No Physical Exam - Summary Physical Exam Summary: Physical Exam: Const: Appears well. No signs of apparent distress present. Alert and oriented x 3. Musculo: Walks with a normal gait. Head/Face: Atraumatic, normocephalic on inspection. Eyes: EOMI and PERRLA in both eyes. left Conjunctivae erythematous. Not much discharge noted . ENT: Hearing normal, TM normal appearing bilaterally, non bulging , non erythematous . No pharyngeal erythema or exudates . Uvula is midline. No cervical or submandibular lymphadenopathy noted. Respiratory: Respirations are unlabored. CVS: Regular rate and Rhythm, S1S2 normal , no murmurs identified. Extremities: Peripheral circulation is grossly normal. Pulses 2+ Abdomen : Soft non tender. Skin: No lesions or rash located on the upper extremities or on the lower extremities. Neuro: Cranial nerves II to XII intact, motor and sensory intact. DTR Intact bilaterally. Mood is normal. Affect is normal. Triage Information Reviewed: Yes Vital Signs: Initial Vital Signs Temp 98.8 F 09/03/18 08:59 Pulse 72 09/03/18 08:59 Resp 12 09/03/18 08:59 BP 115/77 09/03/18 08:59 Pulse Ox 98 09/03/18 08:59 Vital Signs Reviewed: Yes Eye Complaint Course/Dx - Course Course Of Treatment: During the visit today, we discussed the findings which are consistent with left eye conjunctivitis and plan to treat it with antibiotic drops . I will prescribe the medication to the pharmacy . Patient expressed understanding . - Differential Dx/Diagnosis Provider Diagnosis: Conjunctivitis, left eye Discharge - Sign-Out/Discharge Documenting (check all that apply): Patient Departure All imaging exams completed and their final reports reviewed: No Studies - Discharge Plan Condition: Stable Disposition: HOME Prescriptions: Polymyx/Trimethoprim OPTH* [Polytrim OPHTH*] 1 drop LEFT EYE Q6H 5 Days #1 btl Patient Education Materials: Conjunctivitis (ED) Referrals: Matteo Juarez MD [Medical Doctor] - 1 Week Blue Davenport MD [Primary Care Provider] - If Needed Additional Instructions: Please start using the eye drops as prescribed to the pharmacy . Hand washing every time. Follow up with ophthalmology within a week if no improvement. Return to Urgent care / ER if symptoms get worse. - Billing Disposition and Condition Condition: STABLE Disposition: Home
== END 2018-09-03 09:47 | disposition home or self-care (01) ==
LOC: UCEAST 08:54
DX: H10.9 Unspecified conjunctivitis (principal); Z91.018 Allergy to other foods
CPT/HCPCS: 99212; G0463